=== PATIENT | male | born 1955 | race Two or more races ===

== ENCOUNTER → 2016-10-28 | Outpatient (CLI) | payer OTHER | LOC: FIMAGING 14:16 | PROVIDERS: ATTEND Family Medicine | DX: J44.9 Chronic obstructive pulmonary disease, unspecified (principal) ==

== ENCOUNTER 2017-09-18 11:02 | Inpatient (IN) | payer OTHER ==
[2017-09-18] MEDS ORDERED: ACETAMINOPHEN 325 MG TAB PO ONE (11:22)
--- NOTE | 2017-09-18 11:33 | EDPHY ---
H & P Stated Complaint: SOB, dizziness for 2 days. Time Seen by Provider: 09/18/17 11:21 HPI/ROS: CHIEF COMPLAINT: Fever, dizziness HISTORY OF PRESENT ILLNESS: The patient is a 62 y/o male with rheumatoid arthritis arriving from [facility] for confusion and difficulty walking. He went to [facility] this morning for evaluation of productive cough, chills, and dizziness that began two days ago. They found him febrile, hypoxic and were concerned about his instability when walking. He describes dizziness upon standing and walking and feels like he will faint. He has not fallen. His describes that he needs to hold onto the wall to walk. He has a frequent productive cough, though does not feel SOB. He feels dehydrated and has not eaten today. He only took one dose of ibuprofen since symptom onset. He denies dyspnea, headache, abdominal pain, vomiting, diarrhea, sore throat. He did not receive a flu vaccination this year. No history of pneumonia or respiratory diseases. REVIEW OF SYSTEMS: Constitutional: see HPI Eyes: No visual changes ENT: No sore throat Respiratory: see HPI Cardiac: No chest pain Gastrointestinal: No nausea, no vomiting, no abdominal pain Genitourinary: No hematuria, no dysuria Musculoskeletal: No leg pain or swelling Skin: No rash Neurological: see HPI Psychiatric: No depression - Personal History Current Tetanus Diphtheria and Acellular Pertussis (TDAP): Yes Tetanus Vaccine Date: 2009 - Medical/Surgical History PMH: PMH includes: 1. Rheumatoid arthritis - Xeljanz, prednisone between 15mg - 2.5mg daily 2. Cardiac surgery, cardiac stents 3. Sleep apnea Hx Asthma: No Hx Chronic Respiratory Disease: Yes Hx Diabetes: No Hx Cardiac Disease: No Hx Renal Disease: No Hx Cirrhosis: No Hx Alcoholism: No Hx HIV/AIDS: No Hx Splenectomy or Spleen Trauma: No Other PMH: RA. Heart surgery with stents 2007. Sleep apnea. - Social History Smoking Status: Never smoked Additional Social History: Lives in [place]. . Employed. - Physical Exam Exam: General Appearance: Alert, non-toxic, appears dazed Eyes: Pupils equal and round, no conjunctival pallor or injection, no nystagmus ENT, Mouth: Mucous membranes dry Neck: Normal inspection Respiratory: rales at the right base Cardiovascular: Regular rate and rhythm Gastrointestinal: Abdomen is soft and non-tender Neurological: A&O, CN II-XII intact, motor/sensory intact, slightly unsteady gait Skin: Warm and dry, no rash Extremities: Nontender, no pedal edema Psychiatric: flat affect Constitutional: Initial Vital Signs Temperature (C) 37.8 C 09/18/17 11:03 Heart Rate 61 09/18/17 11:03 Respiratory Rate 18 09/18/17 11:03 Blood Pressure 108/77 09/18/17 11:03 O2 Sat (%) 90 L 09/18/17 11:03 O2 Delivery Mode Nasal Cannula O2 (L/minute) 2 Allergies/Adverse Reactions: codeine [Codeine] Allergy (Verified 04/02/13 08:35) naproxen [From Naprosyn] Allergy (Verified 04/02/13 08:35) Home Medications: Medication Instructions Recorded Leflunomide 20 mg PO DAILY 01/09/12 buPROPion XL [Wellbutrin Xl] 450 mg PO DAILY 01/09/12 Aspirin [Aspirin 81mg (OTC)] 81 mg PO DAILY 06/22/12 Atorvastatin Calcium [Lipitor 20 20 mg PO HS 06/22/12 mg (*)] Citalopram Hydrobromide [Celexa] 40 mg PO DAILY 06/22/12 Clopidogrel Bisulfate [Plavix (*)] 75 mg PO DAILY 06/22/12 Valsartan/Hydrochlorothiazide 1 each PO DAILY 06/22/12 [Valsartan-Hctz 320-25 mg Tab] Acetaminophen [Tylenol 325mg (*)] 325 mg PO DAILY PRN 09/18/17 Albuterol [Proventil Inhaler HFA 1 - 2 puffs IH Q4H PRN 09/18/17 (*)] Buprenorphine HCl [Belbuca] 450 mcg BC HS 09/18/17 Buprenorphine HCl [Belbuca] 600 mcg BC DAILY 09/18/17 Calcium Carbonate [Oyster Shell 500 mg PO DAILY 09/18/17 Calcium 500 mg (*)] Cholecalciferol Vit D3 [Vitamin D3 1,000 units PO DAILY 09/18/17 (*)] Cholecalciferol Vit D3 [Vitamin D3 1,000 units PO DAILY 09/18/17 (*)] Folic Acid [Folic Acid 1 MG (*)] 1 mg PO DAILY 09/18/17 Gabapentin Enacarbil [Horizant] 600 mg PO BID 09/18/17 Herbals/Supplements -Info Only 1 ea PO DAILY 09/18/17 Ibuprofen [Motrin (*)] 200 mg PO DAILY PRN 09/18/17 Melatonin [Melatonin 3 MG (*)] 3 mg PO HS PRN 09/18/17 Methotrexate Sodium [Rheumatrex 15 mg PO HARE 09/18/17 2.5 mg (RX)] Metoprolol Succinate Xr [Toprol Xl 50 mg PO DAILY 09/18/17 50 mg (*)] OLANZapine [ZyPREXA 2.5 mg (*)] 5 mg PO HS 09/18/17 Tapentadol HCl [Nucynta 50 MG (*)] 50 mg PO BID 09/18/17 Tofacitinib Citrate [Xeljanz] 5 mg PO BID 09/18/17 oxyCODONE IR [Oxycodone Ir (*)] 15 mg PO QID 09/18/17 predniSONE 7.5 mg PO DAILY 09/18/17 Medical Decision Making - Diagnostics Imaging Results: Chest X-Ray 09/18/17 11:22 Impression: Stable negative chest.. CT head ready by the radiologist: hypodensity in divya, cerebral atrophy Imaging: I viewed and interpreted images myself ED Course/Re-evaluation: This is a 62 y/o male with rheumatoid arthritis who presents with a 2-day history of cough, dizziness, and chills. Clinically, he appears dehydrated. He does not meet SIRS criteria. Plan for IV, labs, flu swab, chest x-ray to rule out pneumonia, and symptom management. 1L IV NS and 650mg PO acetaminophen administered. Will reassess after IVF. Chest x-ray is negative. Flu swab negative. RSV positive. Other labs unremarkable. Pt feels and looks better after IVF. Appears much more alert and interactive, with a normal affect. Patient walked around the department with RN while on pulse oximetry and dropped to 85-89% SpO2. He also had a slightly ataxic gait. Head CT ordered. Patient will require admission for hypoxemia and gait instability. CT head concerning for possible pontine CVA. MRI brain ordered. No abx given in ED; CXR negative and resp swab reveals RSV. Consulted with hospitalist service. Dr. Real accepts admission. Differential Diagnosis: includes though not limited to pneumonia, influenza, encephalitis/encephalopathy , severe dehydration, vertigo, CVA, medication effect. - Data Points Laboratory Results: Laboratory Results 09/19/17 04:50 09/19/17 04:50 Microbiology Results: MICROBIOLOGY 09/18/17 11:47 Blood Blood Culture - Preliminary 09/18/17 12:20 Blood Blood Culture - Preliminary Medications Given: Albuterol/Ipratropium (Duoneb) 3 ml IH Q6 RYANN Stop: 03/18/18 17:59 Last Admin: 09/20/17 06:20 Dose: 3 ml Aspirin (Aspirin) 81 mg PO DAILY RYANN Stop: 03/18/18 08:59 Last Admin: 09/20/17 08:50 Dose: 81 mg Atorvastatin Calcium (Lipitor) 20 mg PO HS RYANN Stop: 03/17/18 20:59 Last Admin: 09/19/17 20:48 Dose: 20 mg Benzonatate (Tessalon Pearles) 100 mg PO TID PRN PRN Reason: Cough, Mild Stop: 03/18/18 16:24 Last Admin: 09/19/17 16:54 Dose: 100 mg Bupropion HCl (Wellbutrin Xl) 450 mg PO DAILY RYANN Stop: 03/18/18 08:59 Last Admin: 09/20/17 08:51 Dose: 450 mg Citalopram Hydrobromide (Celexa) 40 mg PO DAILY RYANN Stop: 03/18/18 08:59 Last Admin: 09/20/17 08:51 Dose: 40 mg Clopidogrel Bisulfate (Plavix) 75 mg PO DAILY RYANN Stop: 03/18/18 08:59 Last Admin: 09/20/17 08:51 Dose: 75 mg Enoxaparin Sodium (Lovenox) 40 mg SC DAILY RYANN Stop: 03/18/18 08:59 Last Admin: 09/20/17 08:57 Dose: 40 mg Folic Acid (Folic Acid) 1 mg PO DAILY RYANN Stop: 03/18/18 08:59 Last Admin: 09/20/17 08:50 Dose: 1 mg Guaifenesin (Mucinex) 1,200 mg PO BID RYANN Stop: 03/18/18 20:59 Last Admin: 09/20/17 08:57 Dose: 1,200 mg Hydrochlorothiazide (Hydrochlorothiazide) 25 mg PO DAILY RYANN Stop: 03/18/18 08:59 Last Admin: 09/20/17 08:54 Dose: 25 mg Azithromycin 500 mg/ Sodium (Chloride) 255 mls @ 255 mls/hr IV DAILY RYANN PRN Reason: Protocol Stop: 10/18/17 15:59 Last Admin: 09/19/17 09:05 Dose: 255 mls Ceftriaxone Sodium 1 gm/ (Sterile Water) 10 mls @ 150 mls/hr IV DAILY RYANN PRN Reason: Protocol Stop: 10/18/17 15:59 Last Admin: 09/19/17 09:03 Dose: 10 mls Leflunomide (Arava) 20 mg PO DAILY RYANN Stop: 03/18/18 08:59 Last Admin: 09/20/17 08:53 Dose: 20 mg Metoprolol Succinate (Toprol Xl) 50 mg PO DAILY RYANN Stop: 03/18/18 08:59 Last Admin: 09/19/17 09:08 Dose: 50 mg Miscellaneous Medication (Tofacitinib Citrate [Xeljanz]) 5 mg PO BID RYANN Stop: 03/17/18 20:59 Last Admin: 09/20/17 08:58 Dose: 1 tab Miscellaneous Medication (Non-Formulary) 1 ea PO BID RYANN Stop: 03/17/18 20:59 Last Admin: 09/20/17 09:02 Dose: Not Given Miscellaneous Medication (Buprenorphine Hcl [Belbuca]) 450 mcg BC [facility] Stop: 03/17/18 20:59 Last Admin: 09/19/17 20:47 Dose: 450 mcg Miscellaneous Medication (Buprenorphine Hcl [Belbuca]) 600 mcg BC DAILY RYANN Stop: 03/18/18 08:59 Last Admin: 09/19/17 09:09 Dose: 600 mcg Olanzapine (Zyprexa) 5 mg PO HS RYANN Stop: 03/17/18 20:59 Last Admin: 09/19/17 20:47 Dose: 5 mg Oxycodone HCl (Oxycodone Ir) 15 mg PO QID RYANN Stop: 09/28/17 15:59 Last Admin: 09/20/17 05:06 Dose: 15 mg Prednisone (Prednisone) 7.5 mg PO DAILY RYANN Stop: 03/18/18 08:59 Last Admin: 09/20/17 08:52 Dose: 7.5 mg Sodium Chloride ([place]) 1 spray EACHNARE PRN PRN PRN Reason: Dry Nose Stop: 03/18/18 16:25 Last Admin: 09/19/17 16:54 Dose: 1 spr Tapentadol (Nucynta) 50 mg PO BID RYANN Stop: 09/28/17 20:59 Last Admin: 09/20/17 08:56 Dose: 50 mg Valsartan (Diovan) 320 mg PO DAILY RYANN Stop: 03/18/18 08:59 Last Admin: 09/20/17 08:54 Dose: 320 mg Discontinued Medications Acetaminophen (Tylenol) 650 mg PO EDNOW ONE Stop: 09/18/17 11:23 Last Admin: 09/18/17 11:34 Dose: 650 mg Sodium Chloride (Ns) 1,000 mls @ 0 mls/hr IV ONCE ONE; Wide Open PRN Reason: Protocol Stop: 09/18/17 11:35 Last Admin: 09/18/17 11:38 Dose: 1,000 mls Sodium Chloride (Ns) 1,000 mls @ 100 mls/hr IV CONT RYANN Stop: 09/19/17 01:59 Last Admin: 09/18/17 16:42 Dose: 1,000 mls Departure - Departure Disposition: [facility] ([place], [place]) Inpatient Acute Clinical Impression: Hypoxemia, RSV (respiratory syncytial virus infection), Stumbling gait Condition: Fair Report Scribed for: Karlee Nevarez Report Scribed by: Ashlee Cmapbell Date of Report: 09/18/17 Time of Report: 11:38 Physician Review and Approval Statement: 09/18/17 11:38 Portions of this note were transcribed by a medical engineer. I personally performed a history, physical exam, medical decision making, and confirmed accuracy of information the transcribed note.
[2017-09-18] MEDS ORDERED: NS 1,000 ML IV ONE (11:34)
[2017-09-18 11:36] LABS: PLATELET COUNT 292 10^3/uL (150-400)
[2017-09-18] MEDS ORDERED: MELATONIN 3 MG TAB PO PRN (15:47)
[2017-09-18] MEDS ORDERED: IPRATROPIUM/ALBUTEROL 3 ML DEYVIAL IH PRN (15:55)
[2017-09-18] MEDS ORDERED: ONDANSETRON 4 MG/2 ML VIAL IVP PRN (15:55)
[2017-09-18] MEDS ORDERED: ACETAMINOPHEN 325 MG TAB PO PRN (15:55)
[2017-09-18] MEDS ORDERED: NS 1,000 ML IV SCH (16:00)
[2017-09-18] MEDS: cefTRIAXone 1 GM in STERILE WATER INJ 10 ML IV SCH (16:42)
[2017-09-18] MEDS: AZITHROMYCIN IV 500 MG in NS 250 ML IV SCH (16:42)
[2017-09-18] MEDS: oxyCODONE IR 15 MG TAB PO SCH ×2 (16:43→20:21)
--- NOTE | 2017-09-18 16:47 | GHP ---
[f rep st] HISTORY AND PHYSICAL DATE OF ADMISSION: 09/18/2017 CHIEF COMPLAINT: Confusion, fever, cough. HISTORY: The patient is a 62-year-old male, who has been having cough productive of a green sputum w ith chills and dizziness for the last week. He had a fever in the ER of 101. His has noticed h im to be very lethargic, falling asleep at the table, slurred speech, decreased balance, shuffling ga it over the last week. She denies focal weakness, however, and describes this more as a generalized listlessness. PAST MEDICAL HISTORY: 1. Coronary artery disease, status post CABG and stent. 2. Hypertension. 3. Rheumatoid arthritis, on chronic immunosuppressive. 4. Obstructive sleep apnea, on CPAP. MEDICATIONS: Please see computer record for full detailed list. ALLERGIES: Codeine and naproxen. SOCIAL HISTORY: No smoking. No alcohol. Although, he was a heavy drinker in the past. He lives wi th his . 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 REVIEW OF SYSTEMS: Complete review of systems obtained. Review of systems negative regarding consti tutional, HEENT, GI, pulmonary, cardiovascular, , hematology, skin, musculoskeletal, endocrine, psy chiatric, except for positives and negatives as in HPI. FAMILY HISTORY: Reviewed. Noncontributory to presenting complaint. PHYSICAL EXAMINATION: GENERAL: Well-developed, well-nourished male, in no acute distress. VITAL SI GNS: Temperature 37.1, pulse 50, blood pressure 118/75, satting 90% on room air. Eyes: Normal conj unctivae. Pupils react to light. ENT: Normal ears and nose. Hearing intact. Normal teeth. Oroph arynx moist. NECK: Trachea midline. No thyromegaly. CHEST: Normal. LUNGS: Clear to auscultatio n bilaterally. CARDIOVASCULAR: Regular rate and rhythm. No murmur. No lower extremity edema. ABD OMEN: Soft, nontender. No hepatosplenomegaly. SKIN: Warm, dry, intact. No rash. MUSCULOSKELETAL : No cyanosis or clubbing. Strength 5/5 upper and lower extremities. NEUROLOGIC: Cranial nerves i ntact. Normal sensation to light touch. PSYCH: Alert and oriented x3. Normal affect. Normal judg ment and insight. Normal memory. LABORATORY DATA: White count 10.85, hematocrit 37.5, platelets 292. Sodium 137, potassium 3.7, chlo ride 97, bicarb 26, BUN 17, creatinine 0.9, glucose 116. RSV is positive. IMAGING: Chest x-ray reviewed by me. My personal interpretation is mostly negative, possibly early infiltrate on the left. Head CT shows old stroke in the left divya and left cerebellar peduncle. ASSESSMENT/PLAN: 1. Respiratory syncytial virus, viral bronchitis, with possible early pneumonia. He is quite immuno suppressed on extensive regimen for his rheumatoid arthritis, so will err on the side of treating him with antibiotics for possible secondary pneumonia. Will start ceftriaxone, azithromycin. Will chec k a procalcitonin. 2. Metabolic encephalopathy, secondary pneumonia. This appears improved, it is nonfocal. 3. 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 His neuro exam is intact. My armas spicion is that his confusion and decreased balance on presentation is more related to his infection. We will check an MRI of the brain to rule out any acute stroke. We do not have a time of onset michael t is at all recent, so therefore, he would be outside of the tPA window. He is already on aspirin an d Plavix, and escalating therapy to anticoagulation would only be indicated if we see atrial fibrilla tion on telemetry. We will check a carotid ultrasound. If his MRI is positive for acute stroke, wou ld add on an echocardiogram and a CT angiogram of the head and neck. 4. Rheumatoid arthritis. On chronic immunosuppressive. He is on methotrexate, prednisone, and tofa citinib, which we will continue. Although, could consider short-term holding these medications while he recovers from his infection. 5. Obstructive sleep apnea. Continue continuous positive airway pressure. 6. Continuous narcotic dependency. He takes oxycodone 15 mg 4 times a day scheduled which we will c ontinue. 7. Code status is full. ADMISSION STATUS: 1. Will admit to observation. Reevaluate tomorrow regarding ongoing need for hospitalization. 2. DVT prophylaxis. He is moderate risk. Will place on subcu Lovenox. /[id number]/MODL
[2017-09-18] MEDS: ATORVASTATIN CALCIUM 20 MG TAB PO SCH (20:20)
[2017-09-18] MEDS: OLANZapine 2.5 MG TAB PO SCH (20:21)
[2017-09-18] MEDS: TAPENTADOL HCL 50 MG TAB PO SCH (20:22)
[2017-09-18] MEDS: BUPRENORPHINE HCL 450 MCG BC SCH (20:22)
[2017-09-18] MEDS: GABAPENTIN ENACARBIL 600 MG PO SCH (20:23)
[2017-09-18] MEDS: Tofacitinib Citrate [Xeljanz] 5 MG PO SCH (20:23)
[2017-09-18] MEDS ORDERED: TOFACITINIB CITRATE 5 MG PO SCH (21:00)
[2017-09-18] MEDS ORDERED: GABAPENTIN ENACARBIL 600 MG PO SCH (21:00)
[2017-09-18] MEDS ORDERED: BUPRENORPHINE HCL 150 MCG BC SCH ×2 (21:00)
[2017-09-18] MEDS ORDERED: GABAPENTIN 300 MG CAP PO SCH (21:00)
[2017-09-19 05:02] LABS: PLATELET COUNT 216 10^3/uL (150-400)
[2017-09-19] MEDS: oxyCODONE IR 15 MG TAB PO SCH ×4 (05:58→20:47)
--- NOTE | 2017-09-19 08:54 | CPEKG ---
Heart Rate: 59 RR Interval: 1017 P-R Interval: 152 QRSD Interval: 102 QT Interval: 456 QTC Interval: 452 P [place]: 58 QRS [place]: 6 T Wave [place]: -6 EKG Severity - ABNORMAL ECG - EKG Impression: SINUS RHYTHM EKG Impression: NONSPECIFIC T ABNORMALITIES, INFERIOR LEADS Electronically Signed By: Jules Vera 20-Sep-2017 08:24:14
[2017-09-19] MEDS ORDERED: BUPRENORPHINE HCL 450 MCG BC SCH ×2 (09:00)
[2017-09-19] MEDS ORDERED: NON-FORMULARY NEW DRUG (Citalopram Hydrobromide [Celexa] 40 MG) PO SCH (09:00)
[2017-09-19] MEDS ORDERED: NON-FORMULARY NEW DRUG (Valsartan/Hydrochlorothiazide [Valsartan-Hctz 320-25 Mg Tab] 1 EAC PO SCH (09:00)
[2017-09-19] MEDS: cefTRIAXone 1 GM in STERILE WATER INJ 10 ML IV SCH (09:03)
[2017-09-19] MEDS: ENOXAPARIN 40 MG/0.4 ML SYR SC SCH (09:04)
[2017-09-19] MEDS: LEFLUNOMIDE 20 MG TAB PO SCH (09:05)
[2017-09-19] MEDS: AZITHROMYCIN IV 500 MG in NS 250 ML IV SCH (09:05)
[2017-09-19] MEDS: VALSARTAN 160 MG TAB PO SCH (09:05)
[2017-09-19] MEDS: CLOPIDOGREL BISULFATE 75 MG TAB PO SCH (09:06)
[2017-09-19] MEDS: predniSONE 5 MG TAB PO SCH (09:06)
[2017-09-19] MEDS: CITALOPRAM 20 MG TAB PO SCH (09:07)
[2017-09-19] MEDS: buPROPion XL 150 MG TAB PO SCH (09:07)
[2017-09-19] MEDS: FOLIC ACID 1 MG TAB PO SCH (09:08)
[2017-09-19] MEDS: HYDROCHLOROTHIAZIDE 25 MG TAB PO SCH (09:08)
[2017-09-19] MEDS: METOPROLOL SUCCINATE XR 50 MG TAB PO SCH (09:08)
[2017-09-19] MEDS: ASPIRIN 81 MG CHEWABLE TAB PO SCH (09:08)
[2017-09-19] MEDS: BUPRENORPHINE HCL 600 MCG BC SCH (09:09)
[2017-09-19] MEDS: TAPENTADOL HCL 50 MG TAB PO SCH ×2 (09:10→21:08)
[2017-09-19] MEDS: GABAPENTIN ENACARBIL 600 MG PO SCH ×2 (09:11→20:48)
[2017-09-19] MEDS: Tofacitinib Citrate [Xeljanz] 5 MG PO SCH ×2 (09:13→20:49)
--- NOTE | 2017-09-19 14:55 | ASMTCMCOM ---
CM Note CM Note Notes: Spoke w/RN, pt cleared by PT for home. Will dc home w/support of when medically stable, CM available for any changes. DC Plan: Independent Date Signed: 09/19/2017 02:55 PM Electronically Signed By:Anna Good RN
[2017-09-19] MEDS ORDERED: BENZONATATE 100 MG CAP PO PRN (16:25)
--- NOTE | 2017-09-19 16:39 | HOSPPROG ---
Hospitalist Progress Note Assessment/Plan: Patient is a 62-year-old male who has been feeling poorly for the past week in addition he has had some confusion as well as fever. Today is my 1st encounter with the patient. Chart reviewed. * viral bronchitis, RSV with possible early pneumonia Patient is immunosuppressed due to rheumatoid arthritis Started on azithromycin and ceftriaxone Procalcitonin level is stable, lactate level is stable Has significant coughing, added Tessalon Perles * acute hypoxemic respiratory failure O2 levels on room air are 76% On 2 L of oxygen and doing well with this * metabolic encephalopathy Improved after getting treatment with antibiotics and hydration The patient's was concerned he could have had a stroke. He takes narcotics and was recently started on Nucynta Likely the combination of pain medications and due to the above have caused this Will ask for speech therapy to do a cognitive evaluation to further evaluate him * possible stroke in the left divya and cerebellum by head CT MRI does not indicate a new acute stroke Carotid Doppler showed no evidence of flow limiting stenosis *anemia had a drop in h/h will follow * severe bilateral pansinusitis Will give him nose sprays and add guaifenesin to help loosen secretions * rheumatoid arthritis On methotrexate, prednisone and tofacitinib * continuous narcotic dependency due to chronic pain from his rheumatoid arthritis Home regimen has been resumed * obstructive sleep apnea Continue CPAP * plan. Patient will require another midnight stay for further evaluation. He continues to be quite hypoxic. Will change to DuoNeb scheduled,he has a history of smoking. Reviewed his care in detail with the patient and his at the bedside Subjective: Alvin is feeling better today after getting fluids and antibiotics. Objective: Vital Signs Temp Pulse Resp BP Pulse Ox 36.9 C 56 L 16 117/79 93 09/19/17 16:04 09/19/17 16:04 09/19/17 16:04 09/19/17 16:04 09/19/17 16:04 Laboratory Results 09/19/17 04:50 09/19/17 04:50 09/18/17 09/19/17 09/20/17 05:59 05:59 05:59 Intake Total 1200 Balance 1200 - Physical Exam Constitutional: no apparent distress, not in pain Eyes: PERRL Ears, Nose, Mouth, Throat: hearing normal Cardiovascular: regular rate and rhythym Respiratory: no respiratory distress, rhonchi (left base, diminished in the right base) Gastrointestinal: normoactive bowel sounds Skin: warm Neurologic: AAOx3 Psychiatric: interacting appropriately, not anxious, not encephalopathic, thought process linear ICD10 Worksheet Patient Problems: Problems Problem Status Onset Hypoxemia Acute RSV (respiratory syncytial virus infection) Acute Stumbling gait Acute
[2017-09-19] MEDS: SODIUM CL NASAL 45 ML BTL EACHNARE PRN (16:54)
[2017-09-19] MEDS: IPRATROPIUM/ALBUTEROL 3 ML DEYVIAL IH SCH ×2 (17:11→21:44)
--- NOTE | 2017-09-19 17:49 | PDMN ---
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
[2017-09-19] MEDS: guaiFENesin 600 MG TAB.ER PO SCH (20:47)
[2017-09-19] MEDS: BUPRENORPHINE HCL 450 MCG BC SCH (20:47)
[2017-09-19] MEDS: OLANZapine 2.5 MG TAB PO SCH (20:47)
[2017-09-19] MEDS: ATORVASTATIN CALCIUM 20 MG TAB PO SCH (20:48)
[2017-09-20] MEDS: oxyCODONE IR 15 MG TAB PO SCH ×4 (05:06→20:20)
[2017-09-20 05:25] LABS: PLATELET COUNT 229 10^3/uL (150-400)
[2017-09-20] MEDS: IPRATROPIUM/ALBUTEROL 3 ML DEYVIAL IH SCH ×4 (06:20→22:14)
[2017-09-20] MEDS: FOLIC ACID 1 MG TAB PO SCH (08:50)
[2017-09-20] MEDS: ASPIRIN 81 MG CHEWABLE TAB PO SCH (08:50)
[2017-09-20] MEDS: CLOPIDOGREL BISULFATE 75 MG TAB PO SCH (08:51)
[2017-09-20] MEDS: buPROPion XL 150 MG TAB PO SCH (08:51)
[2017-09-20] MEDS: CITALOPRAM 20 MG TAB PO SCH (08:51)
[2017-09-20] MEDS: predniSONE 5 MG TAB PO SCH (08:52)
[2017-09-20] MEDS: LEFLUNOMIDE 20 MG TAB PO SCH (08:53)
[2017-09-20] MEDS: VALSARTAN 160 MG TAB PO SCH (08:54)
[2017-09-20] MEDS: HYDROCHLOROTHIAZIDE 25 MG TAB PO SCH (08:54)
[2017-09-20] MEDS: TAPENTADOL HCL 50 MG TAB PO SCH ×2 (08:56→20:21)
[2017-09-20] MEDS: guaiFENesin 600 MG TAB.ER PO SCH ×2 (08:57→20:20)
[2017-09-20] MEDS: ENOXAPARIN 40 MG/0.4 ML SYR SC SCH (08:57)
[2017-09-20] MEDS: Tofacitinib Citrate [Xeljanz] 5 MG PO SCH ×2 (08:58→20:23)
[2017-09-20] MEDS: GABAPENTIN ENACARBIL 600 MG PO SCH ×2 (09:02→20:22)
[2017-09-20] MEDS: METOPROLOL SUCCINATE XR 50 MG TAB PO SCH (09:57)
[2017-09-20] MEDS: cefTRIAXone 1 GM in STERILE WATER INJ 10 ML IV SCH (09:57)
[2017-09-20] MEDS: AZITHROMYCIN IV 500 MG in NS 250 ML IV SCH (09:58)
[2017-09-20] MEDS: BUPRENORPHINE HCL 600 MCG BC SCH (10:03)
[2017-09-20] MEDS: SODIUM CL NASAL 45 ML BTL EACHNARE PRN ×2 (10:06→20:24)
--- NOTE | 2017-09-20 10:34 | HOSPPROG ---
Hospitalist Progress Note Assessment/Plan: Patient is a 62-year-old male who has been feeling poorly for the past week in addition he has had some confusion as well as fever. * viral bronchitis, RSV with possible early pneumonia Patient is immunosuppressed due to rheumatoid arthritis Started on azithromycin and ceftriaxone Procalcitonin level is stable, lactate level is stable Has significant coughing, added Tesstanislaw Perles * acute hypoxemic respiratory failure O2 levels on room air were 76% n admission now at 86% * metabolic encephalopathy Improved after getting treatment with antibiotics and hydration The patient's was concerned he could have had a stroke. He takes narcotics and was recently started on Nucynta Likely the combination of pain medications and due to the above have caused this ST evaluated and he did well cognitively * possible stroke in the left divya and cerebellum by head CT MRI does not indicate a new acute stroke Carotid Doppler showed no evidence of flow limiting stenosis *anemia had a drop in h/h stable w repeat labs * severe bilateral pansinusitis Will give him nose sprays and add guaifenesin to help loosen secretions * rheumatoid arthritis On methotrexate, prednisone and tofacitinib * continuous narcotic dependency due to chronic pain from his rheumatoid arthritis Home regimen has been resumed * obstructive sleep apnea Continue CPAP * plan. Will need another midnight for monitoring, he is improving but has ongoing coughing and not quite ready for dc. Subjective: Alvin is feeling better, still coughing. Objective: Vital Signs Temp Pulse Resp BP Pulse Ox 36.6 C 61 14 146/88 H 91 L 09/20/17 08:00 09/20/17 09:57 09/20/17 08:00 09/20/17 08:00 09/20/17 09:00 Laboratory Results 09/20/17 04:47 09/20/17 04:47 09/19/17 09/20/17 09/21/17 05:59 05:59 05:59 Intake Total 400 Balance 400 - Physical Exam Constitutional: no apparent distress, appears nourished Eyes: PERRL Ears, Nose, Mouth, Throat: hearing normal Cardiovascular: regular rate and rhythym Respiratory: no respiratory distress, reduced air movement Skin: warm Musculoskeletal: full muscle strength Neurologic: AAOx3 Psychiatric: interacting appropriately ICD10 Worksheet Patient Problems: Problems Problem Status Onset Hypoxemia Acute RSV (respiratory syncytial virus infection) Acute Stumbling gait Acute
[2017-09-20] MEDS: OLANZapine 2.5 MG TAB PO SCH (20:20)
[2017-09-20] MEDS: ATORVASTATIN CALCIUM 20 MG TAB PO SCH (20:21)
[2017-09-20] MEDS: BUPRENORPHINE HCL 450 MCG BC SCH (21:08)
[2017-09-21] MEDS: oxyCODONE IR 15 MG TAB PO SCH (05:01)
[2017-09-21] MEDS: IPRATROPIUM/ALBUTEROL 3 ML DEYVIAL IH SCH (06:08)
[2017-09-21 08:01] VITALS: BP 121/81; PULSE 61; RESP 16; TEMP 97.3
--- NOTE | 2017-09-21 08:41 | HOSPPROG ---
Hospitalist Progress Note Assessment/Plan: #Acute hypoxic resp failure: RSV. Resolved #Viral pneumonitis/possible PNA: complete 5 days abx #Metabolic encephalopathy #Possible CVA: negative MRI #Anemia: stable #RA: pred, MTX, tofacitnib #DC today Subjective: feeling like self Objective: Vital Signs Temp Pulse Resp BP Pulse Ox 36.3 C 61 16 121/81 H 89 L 09/21/17 08:00 09/21/17 08:00 09/21/17 08:00 09/21/17 08:00 09/21/17 08:00 Laboratory Results 09/20/17 04:47 09/20/17 04:47 09/20/17 09/21/17 09/22/17 05:59 05:59 05:59 Intake Total 400 Balance 400 - Physical Exam Constitutional: no apparent distress Eyes: PERRL Ears, Nose, Mouth, Throat: moist mucous membranes, hearing normal Cardiovascular: regular rate and rhythym Respiratory: rhonchi, No inspiratory crackles Gastrointestinal: normoactive bowel sounds Genitourinary: no bladder fullness Skin: warm Musculoskeletal: full muscle strength Neurologic: AAOx3, CN II-XII Intact Psychiatric: interacting appropriately ICD10 Worksheet Patient Problems: Problems Problem Status Onset Hypoxemia Acute RSV (respiratory syncytial virus infection) Acute Stumbling gait Acute
[2017-09-21] MEDS: Tofacitinib Citrate [Xeljanz] 5 MG PO SCH (09:08)
[2017-09-21] MEDS: LEFLUNOMIDE 20 MG TAB PO SCH (09:10)
[2017-09-21] MEDS: HYDROCHLOROTHIAZIDE 25 MG TAB PO SCH (09:10)
[2017-09-21] MEDS: VALSARTAN 160 MG TAB PO SCH (09:10)
[2017-09-21] MEDS: buPROPion XL 150 MG TAB PO SCH (09:11)
[2017-09-21] MEDS: ASPIRIN 81 MG CHEWABLE TAB PO SCH (09:12)
[2017-09-21] MEDS: predniSONE 5 MG TAB PO SCH (09:12)
[2017-09-21] MEDS: CITALOPRAM 20 MG TAB PO SCH (09:12)
[2017-09-21] MEDS: METOPROLOL SUCCINATE XR 50 MG TAB PO SCH (09:12)
[2017-09-21] MEDS: CLOPIDOGREL BISULFATE 75 MG TAB PO SCH (09:13)
[2017-09-21] MEDS: ENOXAPARIN 40 MG/0.4 ML SYR SC SCH (09:13)
[2017-09-21] MEDS: FOLIC ACID 1 MG TAB PO SCH (09:13)
[2017-09-21] MEDS: guaiFENesin 600 MG TAB.ER PO SCH (09:14)
[2017-09-21] MEDS ORDERED: AZITHROMYCIN 250 MG TAB PO SCH (09:15)
[2017-09-21] MEDS: AZITHROMYCIN IV 500 MG in NS 250 ML IV SCH (09:38)
[2017-09-21] MEDS: BUPRENORPHINE HCL 600 MCG BC SCH (10:12)
[2017-09-21] MEDS: TAPENTADOL HCL 50 MG TAB PO SCH (10:13)
[2017-09-21] MEDS: GABAPENTIN ENACARBIL 600 MG PO SCH (10:15)
[2017-09-21 10:19] VITALS: O2SAT 92
--- NOTE | 2017-09-21 12:42 | GDS ---
[f rep st] DISCHARGE SUMMARY DISCHARGE DIAGNOSES: 1. Acute hypoxic respiratory failure. 2. Respiratory syncytial virus. 3. Community-acquired pneumonia, metabolic encephalopathy. 4. Possible cerebrovascular accident. 5. Anemia. 6. Rheumatoid arthritis on chronic immunosuppression. 7. Obstructive sleep apnea on CPAP. HISTORY OF PRESENT ILLNESS: A 62-year-old male with RA on chronic immunosuppression, DON on CPAP, pr esenting with productive cough of green sputum, chills and dizziness for the past week. He fevered t o 101 in the emergency room. His noted that he was very lethargic, fallen asleep at the table. She also describes slurred speech, unstable gait, and being off balance. HOSPITAL COURSE BY PROBLEM: 1. Acute hypoxic respiratory failure: Secondary to RSV infection, possible community-acquired pneum onia. We will cover for possible pneumonia given chronic immunosuppression. He received ceftriaxone and azithromycin here. Will complete 2 more days of azithromycin for a total 5 days. 2. RSV: Supportive care. 3. Community-acquired pneumonia: Again complete a total of 5 days antibiotics. 4. 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 He had a normal neuro exam a nd his MRI was negative. He is already on aspirin and Plavix. His carotid ultrasounds were negative for stenosis. 5. Rheumatoid arthritis. Continue methotrexate, prednisone, and tofacitinib. 6. DON: CPAP. 7. Chronic narcotic dependency: He takes oxycodone, plus recently on Nucynta. He denies being grog gy on either of these medications. 8. Acute metabolic encephalopathy: Secondary to acute illness in the setting of chronic pain medica tions. He has a nonfocal neuro exam with a negative CT head and MRI. He is alert and oriented x3 at discharge. DISPOSITION: Patient is stable for discharge home. NEW MEDICATIONS: Azithromycin 250 mg take 2 tabs. FOLLOWUP: His primary care physician. /[id number]/MODL
[2017-09-21] MEDS ORDERED: METHOTREXATE 2.5 MG TAB PO SCH (15:47)
== END 2017-09-21 10:45 | disposition home or self-care (01) | DRG 202 ==
LOC: INTOOBSV 13:14 → F3E 14:17 → OBSVTOIN 09-19 16:27
PROVIDERS: ADMIT Internal Medicine; ATTEND Internal Medicine
DX: J20.5 Acute bronchitis due to respiratory syncytial virus (principal); J96.01 Acute respiratory failure with hypoxia; G93.41 Metabolic encephalopathy; J18.9 Pneumonia, unspecified organism; M06.9 Rheumatoid arthritis, unspecified; F11.20 Opioid dependence, uncomplicated; I63.8 Other cerebral infarction; J01.40 Acute pansinusitis, unspecified; E86.0 Dehydration; G47.33 Obstructive sleep apnea (adult) (pediatric); R26.81 Unsteadiness on feet; D64.9 Anemia, unspecified; I10 Essential (primary) hypertension; I25.10 Atherosclerotic heart disease of native coronary artery without angina pectoris; Z87.891 Personal history of nicotine dependence; Z95.5 Presence of coronary angioplasty implant and graft
CPT/HCPCS: 92523-GN; 97116-GP; 97161-GP; 97166-GO; 97535-GO; G0378; J0456; J0696; J1650; J7512

== ENCOUNTER 2018-10-28 12:20 | Emergency (ER) | payer OTHER ==
--- NOTE | 2018-10-28 13:32 | EDPHY ---
H & P Stated Complaint: body aches, chills, cough Time Seen by Provider: 10/28/18 13:29 HPI/ROS: HPI: This is a 63-year-old male who presents with Chief Complaint: Fever, chills, cough Location: Body Quality: Fever, chills, cough Duration: 2-3 days Signs and Symptoms: + subjective fever, no nausea, no vomiting, no diarrhea, no urinary symptoms, no chest pain, no shortness of breath, no wheezing, + productive cough, no sore throat, no neck stiffness, no joint pain, no swollen glands, no ear pain, no rash Timing: Rapid onset Severity: Moderate Context: Patient presents with 2 day history of fever, chills, productive cough of green sputum. Patient has rheumatoid arthritis and is on a chronic immunosuppression. Patient reports he did not receive his influenza vaccine this year. Chart review shows that patient was admitted in September for acute hypoxic respiratory failure, RSV, community-acquired pneumonia, metabolic encephalopathy in treated with 5 days of antibiotics. Nonsmoker. No history of lung disease. Patient reports that he was not able to go to work the last 2 days. After discharge from the hospital last month he was given inhaler which he reports he no longer has. Modifying Factors: None Comment: ROS: A comprehensive 10 system review of systems is otherwise negative aside from elements mentioned in the history of present illness. MEDICAL/SURGICAL/SOCIAL HISTORY: Medical history: RA chronic immunosuppression, Sleep apnea on CPAP, chronic narcotic dependency Surgical history: Heart surgery with stents 2007, back surgery Social history: Never smoked. Employed as a middle or intermediate school principal. Family history noncontributory. CONSTITUTIONAL: Nontoxic-appearing, flat affect, elderly male, awake and alert, no obvious distress HEENT: Atraumatic and normocephalic, PERRL, EOMI. Nares patent; no rhinorrhea; no nasal mucosal edema. Tympanic membranes clear. Oropharynx clear, no exudate and moist pink mucosa. Airway patent. No lymphadenopathy. No meningismus. Cardiovascular: Normal S1/S2, regular rate, regular rhythm, without murmur rub or gallop. PULMONARY/CHEST: Symmetrical and nontender. Clear to auscultation bilaterally. Good air movement. No accessory muscle usage. ABDOMEN: Soft, nondistended, nontender, no rebound, no guarding, no peritoneal signs, no masses or organomegaly. No CVAT. EXTREMITIES: 2/2 pulses, strength 5/5, no deformities, no clubbing, no cyanosis or edema. NEUROLOGICAL: no focal neuro deficits. GCS 15. SKIN: Warm and dry, no erythema. no rash. Good capillary refill. Source: Patient Exam Limitations: No limitations - Personal History Current Tetanus/Diphtheria Vaccine: Yes Current Tetanus Diphtheria and Acellular Pertussis (TDAP): Yes Tetanus Vaccine Date: 2009 - Medical/Surgical History Hx Asthma: No Hx Chronic Respiratory Disease: Yes Hx Diabetes: No Hx Cardiac Disease: No Hx Renal Disease: No Hx Cirrhosis: No Hx Alcoholism: No Hx HIV/AIDS: No Hx Splenectomy or Spleen Trauma: No Other PMH: RA. Heart surgery with stents 2007. Sleep apnea. back surgery. - Social History Smoking Status: Never smoked Constitutional: Initial Vital Signs Temperature (C) 36.8 C 10/28/18 12:26 Heart Rate 85 10/28/18 12:26 Respiratory Rate 18 10/28/18 12:26 Blood Pressure 124/88 H 10/28/18 12:26 O2 Sat (%) 95 10/28/18 12:26 O2 Delivery Mode Room Air Allergies/Adverse Reactions: codeine [Codeine] Allergy (Verified 10/28/18 12:31) naproxen [From Naprosyn] Allergy (Verified 10/28/18 12:31) Home Medications: Medication Instructions Recorded Leflunomide 20 mg PO DAILY 01/09/12 buPROPion XL [Wellbutrin 150mg XL] 450 mg PO DAILY 01/09/12 Aspirin [Aspirin 81mg (*)] 81 mg PO DAILY 06/22/12 Atorvastatin Calcium [Lipitor 20 20 mg PO HS 06/22/12 mg (*)] Citalopram Hydrobromide [Celexa] 40 mg PO DAILY 06/22/12 Clopidogrel Bisulfate [Plavix (*)] 75 mg PO DAILY 06/22/12 Valsartan/Hydrochlorothiazide 1 each PO DAILY 06/22/12 [Valsartan-Hctz 320-25 mg Tab] Acetaminophen [Tylenol 325mg (*)] 325 mg PO DAILY PRN 09/18/17 Albuterol [Proventil Inhaler HFA 1 - 2 puffs IH Q4H PRN 09/18/17 (*)] Buprenorphine HCl [Belbuca] 450 mcg BC HS 09/18/17 Buprenorphine HCl [Belbuca] 600 mcg BC DAILY 09/18/17 Calcium Carbonate [Oyster Shell 500 mg PO DAILY 09/18/17 Calcium 500 mg (*)] Cholecalciferol Vit D3 [Vitamin D3 1,000 units PO DAILY 09/18/17 (*)] Cholecalciferol Vit D3 [Vitamin D3 1,000 units PO DAILY 09/18/17 (*)] Folic Acid [Folic Acid 1 MG (*)] 1 mg PO DAILY 09/18/17 Gabapentin Enacarbil [Horizant] 600 mg PO BID 09/18/17 Herbals/Supplements -Info Only 1 ea PO DAILY 09/18/17 Ibuprofen [Motrin (*)] 200 mg PO DAILY PRN 09/18/17 Melatonin [Melatonin 3 MG (*)] 3 mg PO HS PRN 09/18/17 Methotrexate Sodium [Rheumatrex] 15 mg PO HARE 09/18/17 Metoprolol Succinate Xr [Toprol Xl 50 mg PO DAILY 09/18/17 50 mg (*)] OLANZapine [ZyPREXA 2.5 mg (*)] 5 mg PO HS 09/18/17 Tapentadol HCl [Nucynta 50 MG (*)] 50 mg PO BID 09/18/17 Tofacitinib Citrate [Xeljanz] 5 mg PO BID 09/18/17 oxyCODONE IR [Oxycodone Ir (*)] 15 mg PO QID 09/18/17 predniSONE 7.5 mg PO DAILY 09/18/17 Azithromycin [Zithromax] 250 mg PO DAILY #2 tab 09/21/17 Albuterol Sulfate [Proair Hfa] 1 - 2 puffs IH Q4 PRN #1 hfa.aer.ad 10/28/18 Medical Decision Making - Diagnostics Imaging Results: Imaging Impressions Chest X-Ray 10/28/18 13:32 Impression: There is no focal infiltrate. ED Course/Re-evaluation: Vital signs reviewed and stable upon arrival. No systemic signs. No hypoxia, respiratory distress, tachypnea. IV access, laboratory studies, chest x-ray, blood cultures ordered Patient given DuoNeb 1405: Chest x-ray my read when compared to the one in September shows no opacity , no effusion, no pneumothorax. Does show torturous aorta with degenerative disc disease in thoracic spine. 1420: Labs reviewed. WBC 13 K with left shift but suspect reactive to steroid. No signs of anemia/platelet dysfunction/ANTON/electrolyte imbalance. Ambulating pulse ox 95% on room air Influenza A positive; symptoms started 2-3 days ago; no history of lung disease ; younger than 65; Tamiflu not indicated based on CDC guidelines Will treat for viral bronchitis outpatient; given Biaxin and albuterol inhaler. Work Note provided per request This patient was seen under the supervision of my secondary supervising physician. I evaluated care for this patient with attending. Differential Diagnosis: Shortness of breath including but not limited to pulmonary infectious process, COPD, asthma, pulmonary embolus and congestive heart failure. - Data Points Laboratory Results: Laboratory Results 10/28/18 13:42 10/28/18 13:42 10/28/18 10/28/18 10/28/18 14:15 13:42 13:42 WBC RBC Hgb Hct MCV MCH MCHC RDW Plt Count MPV Neut % (Auto) Lymph % (Auto) [place] % (Auto) Eos % (Auto) Baso % (Auto) Nucleat RBC Rel Count Absolute Neuts (auto) Absolute Lymphs (auto) Absolute Monos (auto) Absolute Eos (auto) Absolute Basos (auto) Absolute Nucleated RBC Immature Gran % Immature Gran # Sodium 137 mEq/L mEq/L (135-145) Potassium 3.6 mEq/L mEq/L (3.5-5.2) Chloride 103 mEq/L mEq/L (97-110) Carbon Dioxide 26 mEq/l mEq/l (22-31) Anion Gap 8 mEq/L mEq/L (6-14) BUN 21 mg/dL mg/dL (7-23) Creatinine 0.8 mg/dL mg/dL (0.7-1.3) Estimated GFR > 60 Glucose 107 mg/dL H mg/dL (70-100) Calcium 8.9 mg/dL mg/dL (8.5-10.4) NT-Pro-B Natriuret Pep 130 pg/mL H pg/mL (0-125) Nasal Influenza A PCR FLU A DETECTED H (NEGATIVE) Nasal Influenza B PCR NEGATIVE FOR FLU B (NEGATIVE) RSV (PCR) NEGATIVE FOR RSV (NEGATIVE) 10/28/18 13:42 WBC 13.17 10^3/uL H 10^3/uL (3.80-9.50) RBC 4.07 10^6/uL L 10^6/uL (4.40-6.38) Hgb 13.0 g/dL L g/dL (13.7-17.5) Hct 39.8 % L % (40.0-51.0) MCV 97.8 fL fL (81.5-99.8) MCH 31.9 pg pg (27.9-34.1) MCHC 32.7 g/dL g/dL (32.4-36.7) RDW 15.4 % H % (11.5-15.2) Plt Count 231 10^3/uL 10^3/uL (150-400) MPV 10.2 fL fL (8.7-11.7) Neut % (Auto) 88.9 % H % (39.3-74.2) Lymph % (Auto) 4.9 % L % (15.0-45.0) [place] % (Auto) 5.4 % % (4.5-13.0) Eos % (Auto) 0.1 % L % (0.6-7.6) Baso % (Auto) 0.2 % L % (0.3-1.7) Nucleat RBC Rel Count 0.0 % % (0.0-0.2) Absolute Neuts (auto) 11.73 10^3/uL H 10^3/uL (1.70-6.50) Absolute Lymphs (auto) 0.64 10^3/uL L 10^3/uL (1.00-3.00) Absolute Monos (auto) 0.71 10^3/uL 10^3/uL (0.30-0.80) Absolute Eos (auto) 0.01 10^3/uL L 10^3/uL (0.03-0.40) Absolute Basos (auto) 0.02 10^3/uL 10^3/uL (0.02-0.10) Absolute Nucleated RBC 0.00 10^3/uL 10^3/uL (0-0.01) Immature Gran % 0.5 % % (0.0-1.1) Immature Gran # 0.06 10^3/uL 10^3/uL (0.00-0.10) Sodium Potassium Chloride Carbon Dioxide Anion Gap BUN Creatinine Estimated GFR Glucose Calcium NT-Pro-B Natriuret Pep Nasal Influenza A PCR Nasal Influenza B PCR RSV (PCR) Medications Given: Discontinued Medications Albuterol/Ipratropium (Duoneb) 3 ml IH EDNOW ONE Stop: 10/28/18 13:34 Last Admin: 10/28/18 14:01 Dose: 3 ml Departure - Departure Disposition: Home, Routine, Self-Care Clinical Impression: Bronchitis, Influenza A Condition: Good Instructions: Acute Bronchitis (ED), Influenza (ED) Additional Instructions: This appears to be viral in nature and no antibiotics indicated. Use albuterol inhaler every 4-6 hours as needed for shortness of breath or wheezing. If symptoms do not improve by Friday, follow up with primary care provider. Return to the ER immediately if you experience fevers/chills, shortness of breath, abdominal pain, inability to tolerate oral intake, or any other symptoms that concern you. Referrals: Ekaterina Bloom MD [Primary Care Provider] - 3-4 days, if not improved Stand Alone Forms: Work Excuse Prescriptions: Albuterol Sulfate [Proair Hfa] 1 - 2 puffs IH Q4 PRN #1 hfa.aer.ad PRN Reason: Short Of Breath/Dyspnea
[2018-10-28] MEDS ORDERED: IPRATROPIUM/ALBUTEROL 3 ML DEYVIAL IH ONE (13:33)
[2018-10-28 14:02] LABS: PLATELET COUNT 231 10^3/uL (150-400)
[2018-10-28 14:37] VITALS: BP 133/94
== END 2018-10-28 14:52 | disposition home or self-care (01) ==
DX: J11.1 Influenza due to unidentified influenza virus with other respiratory manifestations (principal); I25.10 Atherosclerotic heart disease of native coronary artery without angina pectoris; M06.9 Rheumatoid arthritis, unspecified; Z79.899 Other long term (current) drug therapy; Z95.5 Presence of coronary angioplasty implant and graft